=== PATIENT | male | born 1960 | race Caucasian/White ===

== ENCOUNTER 2017-10-27 12:20 | Day surgery (SDC) | payer BC ==
[2017-10-27] MEDS ORDERED: BUPIVACAINE HCL 0.25% MPF 10 ML SOL INFIL ONE (13:00)
[2017-10-27] MEDS ORDERED: LIDOCAINE HCL 1% MPF SOL ONE (13:00)
[2017-10-27 13:47] VITALS: BP 140/87; PULSE 73; RESP 20; TEMP 98.6; O2SAT 94
== END 2017-10-27 14:00 | disposition home or self-care (01) ==
LOC: SURG 12:20
PROVIDERS: ATTEND Nurse Anesthetist, Certified Registered
DX: M54.5 Low back pain (principal); M12.88 Other specific arthropathies, not elsewhere classified, other specified site
CPT/HCPCS: J2001

== ENCOUNTER 2017-12-01 12:18 | Day surgery (SDC) | payer BC ==
[2017-12-01] MEDS ORDERED: BUPIVACAINE HCL 0.25% MPF 10 ML SOL INFIL ONE (12:44)
[2017-12-01] MEDS ORDERED: LIDOCAINE HCL 2% MPF SOL ONE (12:44)
[2017-12-01] MEDS ORDERED: LIDOCAINE HCL 1% MPF SOL ONE (12:54)
[2017-12-01 13:27] VITALS: BP 145/83; PULSE 72; RESP 18; TEMP 97.4; O2SAT 96
== END 2017-12-01 13:42 | disposition home or self-care (01) ==
LOC: SURG 12:18
PROVIDERS: ATTEND Nurse Anesthetist, Certified Registered
DX: M12.88 Other specific arthropathies, not elsewhere classified, other specified site (principal)
CPT/HCPCS: J2001

== ENCOUNTER 2018-03-07 12:51 | Day surgery (SDC) | payer BC ==
[2018-03-07] MEDS ORDERED: LIDOCAINE HCL 2% MPF 10 ML SOL ONE (13:12)
[2018-03-07] MEDS ORDERED: SODIUM CHLORIDE 0.9% FLUSH 10 ML SOL IV ONE (13:17)
[2018-03-07] MEDS: FENTANYL 100MCG/2ML SOL ONE ×2 (13:25→13:42)
[2018-03-07] MEDS: MIDAZOLAM 2 MG/2 ML SOL ONE ×2 (13:26→13:30)
[2018-03-07] MEDS: TRIAMCINOLONE ACETONIDE 40 MG/ML SUS ONE ×3 (13:51→14:08)
[2018-03-07 14:29] VITALS: BP 127/78; PULSE 72; RESP 20; TEMP 97.7; O2SAT 97
== END 2018-03-07 14:45 | disposition home or self-care (01) ==
LOC: SURG 12:51
PROVIDERS: ATTEND Nurse Anesthetist, Certified Registered
DX: M12.88 Other specific arthropathies, not elsewhere classified, other specified site (principal)
CPT/HCPCS: J2250; J2795; J3010; J3300